=== PATIENT | male | born 1975 | race African-American/Black ===

== ENCOUNTER 2018-03-13 18:03 | Observation (INO) | payer SELFPAY ==
[~2018-03-13 18:03] MED LIST: Lidocaine 1% PF 5 ML VIAL ONE; Ondansetron HCl/PF 4 MG/2 ML Vial ONE; PROPOFOL 200 MG/20 ML VIAL ONE
[2018-03-13 18:37] LABS: Bilirubin Small (Negative); Blood, Urine Negative (Negative); Clarity CLEAR (Clear); Glucose, Urine (Dipstick) Negative (Negative); Leukocyte Negative (Negative); Nitrite Negative (Negative); Protein, Urine (Dipstick) 30 mg/dL (Neg-Trace); Specific Gravity, Urine 1.037 (1.002-1.036); pH, Urine 5.5 (5.0-9.0)
[2018-03-13 18:40] LABS: Bacteria/HPF None Seen HPF (None Seen); Hyaline Casts/LPF 0-3 HYALINE CAST LPF (0-3 Hyaline); Pathc Cast-AUWi Flag 0.29 (0-2.49); RBC/HPF 0-3 HPF (0-3); Squamous Epithelial 0-3 HPF (0-3); WBC/HPF 0-3 HPF (0-3)
[2018-03-13 18:47] LABS: Amphetamine Not Detected (NotDetected); Barbiturates Screen Not Detected (NotDetected); Benzodiazepine Screen Not Detected (NotDetected); Cocaine Metabolite Screen Not Detected (NotDetected); Medtox Control Line Valid? VALID (VALID); Medtox Reader # READER 4; Methadone Not Detected (NotDetected); Methamphetamine Not Detected (NotDetected); Opiate Screen Not Detected (NotDetected); Oxycodone Screen Not Detected (NotDetected); Phencyclidine (PCP) Detected (NotDetected); THC/Cannabinoid Screen Not Detected (NotDetected); Tricyclic Screen Not Detected (NotDetected)
[2018-03-13] MEDS ORDERED: CEFAZOLIN 1 GM VIAL ONE (18:48)
--- NOTE | 2018-03-13 21:06 | RAD ---
LEFT FOREARM TWO VIEW 03/13/18 HISTORY: Laceration of the left wrist. COMPARISON: None. FINDINGS: The proximal forearm appears to be intact. The evaluation of the wrist is limited. Dorsal soft tissue swelling is present. Ulnar styloid evaluation is limited. IMPRESSION: Soft tissue swelling along the dorsal wrist. Dedicated wrist radiograph is recommended. POS: JOSE
[2018-03-13] MEDS ORDERED: Sodium Chloride 0.9% 30 ML ONE (22:29)
[2018-03-13] MEDS ORDERED: Bacitracin Zinc Ointment 30 gm TUBE ONE (22:29)
[2018-03-13] MEDS ORDERED: Bupivacaine PF 0.5% 30 ML VIAL ONE (22:29)
[2018-03-13] MEDS ORDERED: Sodium Chloride 0.9% 20 ML ONE (22:36)
[2018-03-14] MEDS ORDERED: Promethazine HCl 25 MG/ML VIAL SLOW IVP PRN (02:07)
[2018-03-14] MEDS ORDERED: Promethazine HCl 25 MG/ML VIAL IM PRN (02:07)
[2018-03-14] MEDS ORDERED: Ondansetron HCl/PF 4 MG/2 ML Vial IVP PRN ×2 (02:07→02:20)
[2018-03-14] MEDS ORDERED: Morphine 4 MG/ML VIAL SLOW IVP PRN (02:20)
[2018-03-14] MEDS ORDERED: traMADol HCl 50 MG TAB PO PRN (02:20)
[2018-03-14] MEDS ORDERED: Acetaminophen 325 MG TAB PO PRN (02:20)
[2018-03-14] MEDS ORDERED: Fentanyl 100 MCG/2 ML VIAL ONE (02:24)
[2018-03-14] MEDS ORDERED: Ketorolac Tromethamine 30 MG/ML VIAL ONE (02:24)
[2018-03-14] MEDS ORDERED: TETANUS AND DIPHTHERIA TOX/PF 0.5 ML DISP.SYRIN IM SCH (02:30)
[2018-03-14] MEDS ORDERED: Communication Order-Pharmacy FS SCH (02:30)
[2018-03-14 03:41] VITALS: BMI 25.2
[2018-03-14] MEDS ORDERED: Vancomycin HCl 1 GM in Premix Bag 1 BAG IVPB SCH (03:45)
[2018-03-14] MEDS: Ketorolac Tromethamine 30 MG/ML VIAL IVP SCH ×4 (05:48→21:55)
[2018-03-14] MEDS ORDERED: Adacel (T-DAP) 0.5 ML VIAL IM ONE (06:00)
[2018-03-14] MEDS: Aspirin 81 mg Enteric Coated Tablet PO SCH ×2 (09:31→19:58)
[2018-03-14] MEDS: HYDROcodone/Acetaminophen 5/325 mg Tablet PO PRN (21:53)
[2018-03-15 04:15] VITALS: BP 166/95; TEMP 98
[2018-03-15] MEDS: HYDROcodone/Acetaminophen 5/325 mg Tablet PO PRN ×2 (04:33→08:20)
[2018-03-15] MEDS: Ketorolac Tromethamine 30 MG/ML VIAL IVP SCH (04:34)
--- NOTE | 2018-03-15 05:21 | OP ---
DATE OF SURGERY: 03/14/2018 PREOPERATIVE DIAGNOSES: Left wrist open wound with joint involvement and possible tendon laceration. POSTOPERATIVE FINDINGS: 1. Superficial ulnar, radial nerve intact via neuroplasty evaluation. 2. Laceration over the distal ulna level of the, A. Retinaculum. B. Extensor digiti minimi. C. Extensor digitorum communis to the small finger. D. Extensor digitorum communis to the ring finger. E. Extensor digitorum communis to the long finger. F. The joint capsule without TFCC injury. PROCEDURES PERFORMED: 1. Debridement of wound. 2. Debridement of the joint which was open over the ulnar carpal joint. 3. Repair of ulnar carpal joint capsule. 4. Repair of retinaculum. 5. Extensor digiti minimi repair zone 6. 6. Extensor digitorum communis to the small finger repair zone 6. 7. Extensor digitorum communis to the ring finger zone 6. 8. Extensor digitorum communis to the long finger zone 6. 9. Superficial ulnar nerve neuroplasty. 10. Closure wound complex 10 cm. 11. C-arm supervision. 12. Application of dressing and splint. INDICATIONS: The patient with an injury from what he said was a glass door window, but somewhat vagu e on the final etiology of the injury. He reports that he has no numbness and tingling at the time, but on exam he had open wound, inability to extend whatsoever, the ring and small finger weakness, th e long finger extension. With the open joint and tendon injury, urgent evaluation with debridement, stabilization was indicated. DESCRIPTION OF PROCEDURE: After successful general endotracheal anesthesia, the limb was prepped and draped. The patient had the time out done appropriately. We exsanguinated the limb, inflated the t ourniquet to 250 mmHg pressure. A standard 10 cm wound, 3 cm distal and 4 cm proximal. We were able to visualize the entire, would include the fact the depth of his joint laceration was only the capsu le and no involvement of TFCC. We then performed debridement of all the wound edges and debridement of some of the tendons, and prepared for repair after 5 liters normal saline injection with antibioti cs inside. Now, we performed a formal debridement of the joint using a curette, tenotomy scissors, p davida, Dreon and we have had no problems. We then visualized the retinaculum and recess the retinac ulum. The extensor digiti minimi tendon was found with both rami as was the extensor digitorum commu nis to the long finger, index finger, to the ring finger, and small finger as well. Both extensor di charito minimi and extensor digitorum communis to the small finger. All were harvested and then the nicolette es were found by either tunneling technique into the compartment of retinaculum or by flex and extens ion of the wrist. Once all these were found to include, the extensor digiti minimi EDC to 4 and 5, E DC to the long finger. Now finished debridement using a technique of Perla's and wade after using other techniques. We now finished the capsule repair that we know was completely closed, the retinaculum using interrup kashif 2-0 Vicryl. The tendon was repaired using for the most part modified Juares technique in [facility] with 4-0 Supramid looped suture using the [place] techniques. We now had all the tendons repaired, and we then focussed on the superficial ulnar nerve which neurop lasty performed throughout its course. It was not damaged by directly about overactivity. The patient now had a repair of the joint capsule, performed retinacular closure with a 2-0 Vicryl inter rupted [id number] and at this point felt he had no other injuries to address. The patient was c leared for discharge and this was scheduled from the PACU. He had excellent recovery at that point.
[2018-03-15] MEDS: Aspirin 81 mg Enteric Coated Tablet PO SCH (08:20)
--- NOTE | 2018-03-16 14:20 | DIS ---
DATE OF ADMISSION: 03/13/2018 DATE OF DISCHARGE: 03/15/2018 ADMISSION DIAGNOSES: As of the followin. 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 2. Laceration of distal ulna involving; A. Retinacular. B. Extensor digiti minimi. C. Extensor digitorum communis to the small finger. D. Extensor digitorum communis to the ring finger. E. Extensor digitorum communis to the long finger. F. Joint capsule of the ulnar carpal joint without TFCC injury. DISCHARGE DIAGNOSES: As of the followin. 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 2. Laceration of distal ulna involving; A. Retinaculum. B. Extensor digiti minimi. C. Extensor digitorum communis to the small finger. D. Extensor digitorum communis to the ring finger. E. Extensor digitorum communis to the long finger. F. Joint capsule of the ulnar carpal joint without TFCC injury. HOSPITAL COURSE: The patient was admitted and immediately underwent debridement over the open wound where we performed the repair after debridement of the wound and the joint repaired the ulnar carpal joint capsule, retinaculum, extensor digitorum minimi, extensor digitorum communis to the small finge r, ring finger, and long finger and did a superficial ulnar nerve neuroplasty. We then closed 10-cm wound and applied a splint. He remained in the hospital for 24 hours and got IV antibiotics, had no fever, chills, was prepared f or discharge. DISCHARGE PLAN: The patient will wear the splint, return to clinic in 7 days for a dressing change a nd wound check and they will be initiated into therapy with a more professional splint. He was discharged on [place], Bactrim-DS, and Toradol.
== END 2018-03-15 08:55 | disposition home or self-care (01) ==
LOC: ERS 18:03 → SDC 23:22 → SURG A 23:22
PROVIDERS: ADMIT Orthopaedic Surgery Hand Surgery; ATTEND Orthopaedic Surgery Hand Surgery
PROC: 01Q40ZZ Repair Ulnar Nerve, Open Approach (ICD-10-PCS; principal; 2018-03-14)
PROC: 0LQ80ZZ Repair Left Hand Tendon, Open Approach (ICD-10-PCS; 2018-03-14)
PROC: 0LQ80ZZ Repair Left Hand Tendon, Open Approach (ICD-10-PCS; 2018-03-14)
PROC: 0LQ80ZZ Repair Left Hand Tendon, Open Approach (ICD-10-PCS; 2018-03-14)
PROC: 0LQ80ZZ Repair Left Hand Tendon, Open Approach (ICD-10-PCS; 2018-03-14)
PROC: 0LQ80ZZ Repair Left Hand Tendon, Open Approach (ICD-10-PCS; 2018-03-14)
PROC: 0LQ80ZZ Repair Left Hand Tendon, Open Approach (ICD-10-PCS; 2018-03-14)
DX: S64.02XA Injury of ulnar nerve at wrist and hand level of left arm, initial encounter (principal); S66.822A Laceration of other specified muscles, fascia and tendons at wrist and hand level, left hand, initial encounter; S61.512A Laceration without foreign body of left wrist, initial encounter; I10 Essential (primary) hypertension; X58.XXXA Exposure to other specified factors, initial encounter
CPT/HCPCS: 80306; 81003; 81015; 90471; 90715; 90732; 96374; 96375; 96376; G0009; G0378; G0390; J0690; J1885; J2001; J2405; J2704; J3010; J3370; J3490; S0020